=== PATIENT | male | born 1995 | race Caucasian/White ===

== ENCOUNTER 2020-08-11 21:52 | Emergency (ER) | payer SELFPAY ==
[~2020-08-11] VITALS: Ht 182.9 cm; Wt 90.7 kg
--- NOTE | 2020-08-11 21:56 | Emergency Department Note ---
History of Present Illnes History of Present Illness Chief Complaint: Chest Pain History of Present Illness This is a 24 year old male presents to the ED for acute onset of left sided CP after smoking marijuana . Arrival Mode: Car Onset (how long ago): hour(s) (1) Location: left sided CP Quality: sharp Radiation: Reports non-radiation Severity: moderate Onset quality: sudden Duration (how long): hour(s) Timing of current episode: constant Progression: worsening Chronicity: new Context: Denies recent illness, Denies recent surgery, Denies recent i mmobilization, Denies recent travel, Denies trauma/injury, Denies new medications, Denies hx of DVT/PE, Denies non-compliance w/ medications, Denies other Relieving factors: none Associated symptoms: Reports chest pain; Denies denies other symptoms, Denies confusion, Denies cough, Denies diaphoresis, Denies fever/chills, Denies headaches, Denies loss of appetite, Denies malaise, Denies nausea/vomiting, Denies rash, Denies seizure, Denies shortness of breath, Denies syncope, Denies weakness, Denies other Past Medical/Family History Physician Review I have reviewed the patient's past medical and family history. Any updates have been documented here. Past Medical History Recent Fever: No Clinical Suspicion of Infectio: No New/Unexplained Change in Ment: No Other Medical History: Anxiety Other Surgery: INGUINAL HERNIA Social History Smoking Cessation: Former smoker Counseling Performed: Yes Alcohol Use: Occasional Any Illegal Drug Use: Yes (eddi) Other Last Tetanus: UTD Review of Systems Review of Systems Constitutional: Reports no symptoms EENTM: Reports no symptoms Cardiovascular: Reports chest pain Respiratory: Reports no symptoms Gastrointestinal: Reports no symptoms Genitourinary: Reports no symptoms Musculoskeletal: Reports no symptoms Integumentary: Reports no symptoms Neurological: Reports no symptoms Psychological: Reports no symptoms Endocrine: Reports no symptoms Hematological/Lymphatic: Reports no symptoms Physical Exam Related Data Allergies: Coded Allergies: No Known Allergies (Unverified , 08/13/17) Vital signs reviewed: Yes Physical Exam CONSTITUTIONAL Constitutional: Present well-developed, Present well-nourished HENT HENT: Present normocephalic, Present atraumatic, Present oropharynx clear/moist, Present nose normal HENT L/R: Present left ext ear normal, Present right ext ear normal EYES Eyes: Reports PERRL, Reports conjunctivae normal NECK Neck: Present ROM normal PULMONARY Pulmonary: Present effort normal, Present breath sounds normal CARDIOVASCULAR Cardiovascular: Present regular rhythm, Present heart sounds normal, Present capillary refill normal, Present normal rate GASTROINTESTINAL Abdominal: Present soft, Present nontender, Present bowel sounds normal GENITOURINARY Genitourinary: Present exam deferred SKIN Skin: Present warm, Present dry MUSCULOSKELETAL Musculoskeletal: Present ROM normal NEUROLOGICAL Neurological: Present alert, Present oriented x 3, Present no gross motor or sensory deficits PSYCHOLOGICAL Psychological: Present mood/affect normal, Present judgement normal Results Laboratory Lab results reviewed: Yes Laboratory comments Laboratory Tests Test 08/11/20 22:10 White Blood Count 9.00 x10e3/uL (4.8-10.8) Red Blood Count 4.72 x10e6/uL (4.3-5.7) Hemoglobin 13.1 g/dL (14.0-18.0) Hematocrit 40.1 % (38.2-49.6) Mean Corpuscular Volume 85.0 fL (81-99) Mean Corpuscular Hemoglobin 27.8 pg (28-32) Mean Corpuscular Hemoglobin Concent 32.7 g/dL (31-35) Red Cell Distribution Width 13.9 % (11.7-14.4) Platelet Count 252 x10e3/uL (140-360) Neutrophils (%) (Auto) 43.8 % (38.7-80.0) Lymphocytes (%) (Auto) 36.8 % (18.0-39.1) Monocytes (%) (Auto) 10.6 % (4.4-11.3) Eosinophils (%) (Auto) 7.1 % (0.0-6.0) Basophils (%) (Auto) 1.0 % (0.0-1.0) Neutrophils # (Auto) 4.0 (2.1-6.9) Lymphocytes # (Auto) 3.3 (1.0-3.2) Monocytes # (Auto) 1.0 (0.2-0.8) Eosinophils # (Auto) 0.6 (0.0-0.4) Basophils # (Auto) 0.1 (0.0-0.1) Absolute Immature Granulocyte (auto 0.06 x10e3/uL (0-0.1) D-Dimer Quantitative (PE/DVT) 0.30 ug/mLFEU (0.00-0.45) Sodium Level 142 mmol/L (136-145) Potassium Level 3.3 mmol/L (3.5-5.1) Chloride Level 106 mmol/L (98-107) Carbon Dioxide Level 26 mmol/L (22-29) Anion Gap 13.3 mmol/L (8-16) Blood Urea Nitrogen 15 mg/dL (7-26) Creatinine 0.98 mg/dL (0.72-1.25) Estimat Glomerular Filtration Rate > 60 ML/MIN (60-) BUN/Creatinine Ratio 15 (6-25) Glucose Level 94 mg/dL (74-118) Calcium Level 9.3 mg/dL (8.4-10.2) Total Bilirubin 0.3 mg/dL (0.2-1.2) Aspartate Amino Transf (AST/SGOT) 31 IU/L (5-34) Alanine Aminotransferase (ALT/SGPT) 43 IU/L (0-55) Alkaline Phosphatase 78 IU/L (40-150) Creatine Kinase 183 IU/L (30-200) Creatine Kinase MB 1.00 ng/mL (0-5.0) Troponin I 0.007 ng/mL (0-0.300) B-Type Natriuretic Peptide < 10.0 pg/mL (0-100) Total Protein 7.6 g/dL (6.5-8.1) Albumin 4.1 g/dL (3.5-5.0) Globulin 3.5 g/dL (2.3-3.5) Albumin/Globulin Ratio 1.2 (0.8-2.0) Imaging Imaging results reviewed: Yes Impressions [place] [address] Patient Name: MAVIS GREENE MR #: [id number] : 1995 Age/Sex: 24/M Req #: [id number] Adm Physician: Ordered by: JULISA WHALEY DO Report #: [id number] Location: ER Room/Bed: Procedure: [id number] DX/CHEST 2 VIEWS Exam Date: 08/11/20 Exam Time: 2240 REPORT STATUS: Signed EXAMINATION: CHEST 2 VIEWS INDICATION: Chest pain. COMPARISON: None FINDINGS: LUNGS: Normal lung volumes. Lungs are clear. No consolidations. PLEURA: No pleural effusion or pneumothorax. HEART AND MEDIASTINUM: The cardiomediastinal silhouette is unremarkable. BONES AND SOFT TISSUES: No acute osseous lesion. Soft tissues are unremarkable. UPPER ABDOMEN: No free air under the diaphragm. IMPRESSION: No acute thoracic radiographic abnormality. Signed by: Juan M Valdez MD on 08/11/2020 11:25 PM Dictated By: JUAN M VALDEZ MD 24 Transcribed By: GLYNN on 08/11/202324 COPY TO: JULISA WHALEY DO~ Assessment & Plan Medical Decision Making MDM Diff Dx : acs, PE, ptx, pna, costochondritis, GERD, anxiety Assessment & Plan Final Impression: (1) Marijuana abuse (2) Chest pain Depart Disposition: HOME, SELF-USP Meds No Active Prescriptions or Reported Meds JULISA WHALEY DO Aug 11, 2020 21:56
[2020-08-11] MEDS ORDERED: ASPIRIN 81 MG CHEW TAB PO ONE (22:00)
[2020-08-11 22:19] LABS: BASOPHILS # (AUTO) 0.1 (0.0-0.1); EOSINOPHILS # (AUTO) 0.6 (0.0-0.4); EOSINOPHILS % 7.1 % (0.0-6.0); HEMATOCRIT 40.1 % (38.2-49.6); HEMOGLOBIN 13.1 g/dL (14.0-18.0); LYMPHOCYTES # (AUTO) 3.3 (1.0-3.2); LYMPHOCYTES % 36.8 % (18.0-39.1); MEAN CORPUSCULAR HEMOGLOBIN 27.8 pg (28-32); MEAN CORPUSCULAR HGB CONC 32.7 g/dL (31-35); MONOCYTES % 10.6 % (4.4-11.3); NEUTROPHILS % 43.8 % (38.7-80.0); PLATELET COUNT 252 x10e3/uL (140-360); RED BLOOD COUNT 4.72 x10e6/uL (4.3-5.7); RED CELL DISTRIBUTION WIDTH 13.9 % (11.7-14.4)
[2020-08-11 22:39] LABS: ALANINE AMINOTRANSFERASE 43 IU/L (0-55); ALBUMIN 4.1 g/dL (3.5-5.0); ALBUMIN/GLOBULIN RATIO 1.2 (0.8-2.0); ALKALINE PHOSPHATASE 78 IU/L (40-150); ANION GAP 13.3 mmol/L (8-16); BLOOD UREA NITROGEN 15 mg/dL (7-26); BUN/CREATININE RATIO 15 (6-25); CALCIUM 9.3 mg/dL (8.4-10.2); CARBON DIOXIDE 26 mmol/L (22-29); CHLORIDE 106 mmol/L (98-107); CREATINE KINASE 183 IU/L (30-200); CREATININE, SERUM 0.98 mg/dL (0.72-1.25); EST GLOMERULAR FILTRATION RATE > 60 ML/MIN (60-); GLUCOSE 94 mg/dL (74-118); POTASSIUM 3.3 mmol/L (3.5-5.1); SODIUM 142 mmol/L (136-145)
--- OUTSIDE RECORDS SUMMARY | 2020-08-11 22:50 | XMS REPORT | Continuity of Care Document ---
Author Author [facility] Organization [facility] Address [address] [place] [phone] Phone Unavailable Care Team Providers Care Clam Dredger Name Role Phone Carlos PETTY Attphys Unavailable Problems This patient has no known problems. Allergies, Adverse Reactions, Alerts This patient has no known allergies or adverse reactions. Medications This patient has no known medications. Procedures This patient has no known procedures. Results Test Description Test Time Test Comments Results Result Comments Source HAND 3+ VIEWS LEFT [facility] [address] [place] [id number] Patient Name: MAVIS GREENE MR #: [id number] : 1995 Age/Sex: 21/M Req #: [id number] Adm Physician: Ordered by: ALYSSA PETTY MD Report #: [id number] Location: ER Room/Bed: Procedure: [id number] DX/HAND 3+ VIEWS LEFT Exam Date: 08/13/17 Exam Time: 1450 REPORT STATUS: Signed Left hand - 3 views HISTORY: Pain. COMPARISON: None available. FINDINGS: Bones: No acute displaced fracture. No periosteal reaction. No expansile lytic or sclerotic lesion. Joints: The joint spaces are well-maintained. No dislocation. Soft tissues: Minimal amount of subcutaneous air is present in the thenar eminence. IMPRESSION: Subcutaneous air in the thenar eminence may represent a soft tissue infection. No acute osseous abnormality. Signed by: Dr. Juan M Ny M.D. on 08/13/2017 3:20 PM Dictated By: JUAN M [place] MD 152 Transcribed By: GLYNN on 08/13/171519 COPY TO: ALYSSA PETTY MD
[2020-08-11 23:02] VITALS: BP 124/74
--- NOTE | 2020-08-11 23:29 | Diagnostic Imaging Report ---
EXAMINATION: CHEST 2 VIEWS INDICATION: Chest pain. COMPARISON: None FINDINGS: LUNGS: Normal lung volumes. Lungs are clear. No consolidations. PLEURA: No pleural effusion or pneumothorax. HEART AND MEDIASTINUM: The cardiomediastinal silhouette is unremarkable. BONES AND SOFT TISSUES: No acute osseous lesion. Soft tissues are unremarkable. UPPER ABDOMEN: No free air under the diaphragm. IMPRESSION: No acute thoracic radiographic abnormality. Signed by: Calderon Duran MD on 08/11/2020 11:25 PM
== END 2020-08-11 23:18 | disposition home or self-care (01) ==
LOC: ER 21:56
DX: R07.89 Other chest pain (principal); F12.10 Cannabis abuse, uncomplicated; F41.9 Anxiety disorder, unspecified
CPT/HCPCS: 36415; 71046; 80053; 82550; 82553; 83880; 84484; 85025; 85379; 93005; 99284